=== PATIENT | male | born 1965 | race Caucasian/White ===

== ENCOUNTER 2017-03-18 08:41 | Day surgery (SDC) | payer OTHER ==
[2017-03-15 15:21] LABS: Basophils # (auto) 0.1 uL; Basophils % (auto) 0.9 % (0.0-2.0); Eosinophils # (auto) 0.4 uL; Eosinophils % (auto) 5.3 % (0.0-7.0); Hematocrit 45.7 % (41.0-53.0); Hemoglobin 15.6 g/dL (13.5-17.5); Lymphocytes # (auto) 3.4 uL; Lymphocytes % (auto) 47.6 % (10.0-50.0); Mean Corpuscular Hemoglobin 32.7 pg (28.0-32.0); Mean Corpuscular Hgb Conc. 34.1 g/dL (32.0-36.0); Mean Corpuscular Volume 95.9 fL (80.0-100.0); Mean Platelet Volume 8.6 fL (7.4-10.4); Monocytes # (auto) 0.6 uL; Monocytes % (auto) 8.4 % (0.0-12.0); Neutrophils # (auto) 2.7 uL; Neutrophils % (auto) 37.8 % (37.0-80.0); Platelet Count (auto) 334 10^3/uL (140-450); Red Cell Distribution Width 13.5 % (11.6-16.0); White Blood Cell 7.2 10^3/uL (4.4-10.8)
[2017-03-15 15:39] LABS: INR 0.96 (0.9-1.15); Partial Thromboplastin Time 25.2 sec (22.64-33.71); Prothrombin Time 10.5 sec (9.37-12.3)
[~2017-03-18] VITALS: Ht 190.5 cm; Wt 105.2 kg
[~2017-03-18 08:41] MED LIST: ASPI81TA27 PO; ERGO2000 PO; LISI-275 PO; METO25TA5 PO; OMEP20CA74 PO; SIMV-8 PO; TOPI100T29 PO
[2017-03-18] MEDS ORDERED: LIDOCAINE VISCOUS 2% 15ML UD ONE (08:55)
[2017-03-18] MEDS ORDERED: diphenhdrAMINE HCL 50 MG/1 ML VL ONE (08:55)
[2017-03-18] MEDS ORDERED: SODIUM CHLORIDE LOCK 10 ML ONE (08:55)
[2017-03-18] MEDS ORDERED: MIDAZOLAM HCL 5 MG/ML-1ML VIAL ONE (09:06)
[2017-03-18] MEDS ORDERED: fentaNYL CITRATE 100 MCG/2 ML VL ONE (09:07)
[2017-03-18] MEDS: fentaNYL CITRATE 100 MCG/2 ML VL ONE ×2 (10:33→10:36)
[2017-03-18] MEDS: MIDAZOLAM HCL 5 MG/ML-1ML VIAL ONE ×3 (10:33→10:45)
[2017-03-18 11:30] VITALS: BP 119/85
== END 2017-03-18 11:30 | disposition home or self-care (01) ==
LOC: GI 08:41
PROVIDERS: ATTEND Internal Medicine Gastroenterology
DX: D12.4 Benign neoplasm of descending colon (principal); K63.5 Polyp of colon; K57.30 Diverticulosis of large intestine without perforation or abscess without bleeding; K64.8 Other hemorrhoids; Z86.010 Personal history of colon polyps; K22.70 Barrett's esophagus without dysplasia; F17.200 Nicotine dependence, unspecified, uncomplicated
CPT/HCPCS: 36415; 43239; 45380; 85025; 85610; 85730; 88305; 88313; J1200; J2250; J3010; J7030

== ENCOUNTER → 2018-05-19 | Outpatient (CLI) | payer OTHER ==
[~2018-05-19] MED LIST changes: -ERGO2000 PO
[2018-05-19 08:20] LABS: Basophils # (auto) 0.1 uL; Basophils % (auto) 1.2 % (0.0-2.0); Eosinophils # (auto) 0.4 uL; Eosinophils % (auto) 5.3 % (0.0-7.0); Hematocrit 47.7 % (41.0-53.0); Hemoglobin 16.2 g/dL (13.5-17.5); Lymphocytes # (auto) 3.4 uL; Lymphocytes % (auto) 43.1 % (10.0-50.0); Mean Corpuscular Hgb Conc. 33.9 g/dL (32.0-36.0); Mean Corpuscular Volume 97.6 fL (80.0-100.0); Monocytes # (auto) 0.7 uL; Monocytes % (auto) 8.7 % (0.0-12.0); Neutrophils # (auto) 3.3 uL; Neutrophils % (auto) 41.7 % (37.0-80.0); Nucleated Red Blood Cells % 0.1 %; Platelet Count (auto) 281 10^3/uL (140-450); Red Blood Cells 4.89 10^6/uL (4.5-5.90); Red Cell Distribution Width 13.6 % (11.8-14.3); White Blood Cell 7.9 10^3/uL (4.4-10.8)
[2018-05-19 08:53] LABS: Albumin 3.9 g/dL (3.4-5.0); BUN/Creatinine Ratio 16.1; Bilirubin, Total 0.7 mg/dL (0.2-1.0); Calcium 8.2 mg/dL (8.5-10.1); Potassium 3.5 mmol/L (3.5-5.1); Total Protein 7.3 g/dL (6.4-8.2)
[2018-05-19 09:34] LABS: Urine Bacteria FEW /hpf (None Seen); Urine Blood Negative /uL (Negative); Urine WBC 1 /hpf (0 - 3)
== END | disposition home or self-care (01) ==
LOC: LAB 07:14
PROVIDERS: ATTEND Family Medicine
DX: I10 Essential (primary) hypertension (principal); E55.9 Vitamin D deficiency, unspecified; E78.5 Hyperlipidemia, unspecified; Z71.6 Tobacco abuse counseling; Z83.3 Family history of diabetes mellitus; Z87.891 Personal history of nicotine dependence; Z79.82 Long term (current) use of aspirin
CPT/HCPCS: 36415; 80053; 80061; 81001; 83036; 85025

== ENCOUNTER → 2018-07-25 | Outpatient (CLI) | payer OTHER ==
[2018-07-25 10:03] LABS: Cholesterol 136 mg/dL (< 200); HDL Cholesterol 36 mg/dL (40-59); LDL Cholesterol 75 mg/dL (< 100); Triglycerides 224 mg/dL (< 150)
== END | disposition home or self-care (01) ==
LOC: LAB 08:51
PROVIDERS: ATTEND Family Medicine
DX: Z12.5 Encounter for screening for malignant neoplasm of prostate (principal); E78.5 Hyperlipidemia, unspecified; Z87.891 Personal history of nicotine dependence
CPT/HCPCS: 36415; 80061; 84153

== ENCOUNTER → 2019-03-17 | Outpatient (CLI) | payer OTHER ==
[2019-03-17 08:05] LABS: BUN/Creatinine Ratio 15.5; Calcium 8.8 mg/dL (8.5-10.1); Potassium 4.3 mmol/L (3.5-5.1)
== END | disposition home or self-care (01) ==
LOC: LAB 07:23
PROVIDERS: ATTEND Family Medicine
DX: Z01.818 Encounter for other preprocedural examination (principal); D11.9 Benign neoplasm of major salivary gland, unspecified
CPT/HCPCS: 36415; 80048

== ENCOUNTER → 2019-08-21 | Outpatient (CLI) | payer OTHER ==
[~2019-08-21] MED LIST changes: +ASPI-404 PO; -ASPI81TA27 PO
[2019-08-21 08:29] LABS: Basophils # (auto) 0.1 uL; Eosinophils # (auto) 0.3 uL; Lymphocytes # (auto) 2.6 uL; Monocytes # (auto) 0.5 uL; Neutrophils # (auto) 2.7 uL
[2019-08-21 08:33] LABS: Basophils % (auto) 1.5 % (0.0-2.0); Eosinophils % (auto) 5.5 % (0.0-7.0); Hematocrit 45.9 % (41.0-53.0); Lymphocytes % (auto) 41.7 % (10.0-50.0); Mean Corpuscular Hemoglobin 34.3 pg (28.0-32.0); Mean Corpuscular Hgb Conc. 34.9 g/dL (32.0-36.0); Mean Corpuscular Volume 98.2 fL (80.0-100.0); Neutrophils % (auto) 43.3 % (37.0-80.0); Nucleated Red Blood Cells % 0.2 %; Platelet Count (auto) 258 10^3/uL (140-450); Red Blood Cells 4.68 10^6/uL (4.5-5.90); White Blood Cell 6.3 10^3/uL (4.4-10.8)
[2019-08-21 08:39] LABS: Urine Bacteria NONE SEEN /hpf (None Seen); Urine Blood Negative /uL (Negative); Urine Specific Gravity 1.018 (1.001-1.035); Urine WBC 1 /hpf (0 - 3)
[2019-08-21 09:09] LABS: Albumin 3.8 g/dL (3.4-5.0); BUN/Creatinine Ratio 14.7; Bilirubin, Total 0.4 mg/dL (0.2-1.0); Calcium 8.6 mg/dL (8.5-10.1)
== END | disposition home or self-care (01) ==
LOC: LAB 07:16
PROVIDERS: ATTEND Family Medicine
DX: E78.5 Hyperlipidemia, unspecified (principal); K21.9 Gastro-esophageal reflux disease without esophagitis; I10 Essential (primary) hypertension; F17.200 Nicotine dependence, unspecified, uncomplicated; Z98.890 Other specified postprocedural states
CPT/HCPCS: 36415; 80053; 80061; 81001; 85025

== ENCOUNTER → 2020-10-13 | Outpatient (CLI) | payer OTHER ==
[~2020-10-13] MED LIST changes: -ASPI-404 PO; +ASPI-543 PO
[2020-10-13 07:34] LABS: Urine WBC None Seen /hpf (0 - 3)
[2020-10-13 07:54] LABS: Urine Bacteria NONE SEEN /hpf (None Seen); Urine Blood Negative /uL (Negative); Urine Specific Gravity 1.022 (1.001-1.035)
[2020-10-13 07:55] LABS: Albumin 3.9 g/dL (3.4-5.0); Potassium 4.2 mmol/L (3.5-5.1)
[2020-10-13 07:56] LABS: Basophils # (auto) 0 10 ^3/uL (0-0.2); Basophils % (auto) 0.4 % (0.0-2.0); Eosinophils # (auto) 0.4 10 ^3/uL (0-0.8); Hematocrit 46.4 % (41.0-53.0); Hemoglobin 16.3 g/dL (13.5-17.5); Lymphocytes # (auto) 2.7 10 ^3/uL (0.4-5.4); Lymphocytes % (auto) 43.3 % (10.0-50.0); Mean Corpuscular Hgb Conc. 35.2 g/dL (32.0-36.0); Mean Corpuscular Volume 96.7 fL (80.0-100.0); Monocytes # (auto) 0.5 10 ^3/uL (0-1.3); Monocytes % (auto) 8.5 % (0.0-12.0); Neutrophils # (auto) 2.6 10 ^3/uL (1.6-8.6); Neutrophils % (auto) 41.8 % (37.0-80.0); Nucleated Red Blood Cells % 0.1 %; Platelet Count (auto) 278 10^3/uL (140-450); Red Cell Distribution Width 13.2 % (11.8-14.3); White Blood Cell 6.3 10^3/uL (4.4-10.8)
[2020-10-13 08:02] LABS: BUN/Creatinine Ratio 13.3; Bilirubin, Total 0.4 mg/dL (0.2-1.0); Total Protein 7.9 g/dL (6.4-8.2)
== END | disposition home or self-care (01) ==
LOC: LAB 07:11
PROVIDERS: ATTEND Family Medicine
DX: Z12.5 Encounter for screening for malignant neoplasm of prostate (principal); I10 Essential (primary) hypertension; K21.9 Gastro-esophageal reflux disease without esophagitis; E78.5 Hyperlipidemia, unspecified; D11.9 Benign neoplasm of major salivary gland, unspecified; Z86.69 Personal history of other diseases of the nervous system and sense organs; Z72.0 Tobacco use
CPT/HCPCS: 36415; 80053; 80061; 81001; 84153; 85025

== ENCOUNTER 2022-06-22 10:45 | Day surgery (SDC) | payer OTHER ==
[2022-06-20 09:48] LABS: Basophils # (auto) 0.1 10 ^3/uL (0-0.2); Basophils % (auto) 0.9 % (0.0-2.0); Eosinophils # (auto) 0.3 10 ^3/uL (0-0.8); Eosinophils % (auto) 4.2 % (0.0-7.0); Hematocrit 46.7 % (41.0-53.0); Hemoglobin 15.7 g/dL (13.5-17.5); Lymphocytes # (auto) 2.6 10 ^3/uL (0.4-5.4); Lymphocytes % (auto) 38.8 % (10.0-50.0); Mean Corpuscular Hemoglobin 32.5 pg (28.0-32.0); Mean Corpuscular Hgb Conc. 33.7 g/dL (32.0-36.0); Mean Corpuscular Volume 96.5 fL (80.0-100.0); Monocytes # (auto) 0.5 10 ^3/uL (0-1.3); Neutrophils # (auto) 3.2 10 ^3/uL (1.6-8.6); Neutrophils % (auto) 48.1 % (37.0-80.0); Nucleated Red Blood Cells % 0.1 %; Red Blood Cells 4.84 10^6/uL (4.5-5.90); Red Cell Distribution Width 12.8 % (11.8-14.3); White Blood Cell 6.6 10^3/uL (4.4-10.8)
[2022-06-20 10:05] LABS: INR 1.01 (0.9-1.15); Partial Thromboplastin Time 25.6 sec (24.6-33.4)
[2022-06-20 10:33] LABS: Albumin 3.8 g/dL (3.4-5.0); Calcium 8.7 mg/dL (8.5-10.1); Potassium 3.9 mmol/L (3.5-5.1)
[2022-06-20 10:36] LABS: BUN/Creatinine Ratio 13.3; Bilirubin, Total 0.4 mg/dL (0.2-1.0)
[~2022-06-22] VITALS: Ht 190.5 cm; Wt 104.3 kg
[~2022-06-22 10:45] MED LIST changes: +BUPRTAB3 PO; +MIDAZOLAM HCL 5 MG/ML-1ML VIAL ONE; +TRAM50TA2 PO; +diphenhdrAMINE HCL 50 MG/1 ML VL ONE; +fentaNYL CITRATE 100 MCG/2 ML VL ONE
[2022-06-22] MEDS ORDERED: SODIUM CHLORIDE LOCK 10 ML ONE (11:38)
[2022-06-22] MEDS: MIDAZOLAM HCL 5 MG/ML-1ML VIAL ONE ×4 (12:22→12:39)
[2022-06-22] MEDS: fentaNYL CITRATE 100 MCG/2 ML VL ONE ×3 (12:22→12:29)
[2022-06-22] MEDS: diphenhdrAMINE HCL 50 MG/1 ML VL ONE ×2 (12:22→12:26)
[2022-06-22 13:20] VITALS: BP 115/85
== END 2022-06-22 13:36 | disposition home or self-care (01) ==
LOC: GI 10:45
PROVIDERS: ATTEND Internal Medicine Gastroenterology
DX: Z12.11 Encounter for screening for malignant neoplasm of colon (principal); D12.4 Benign neoplasm of descending colon; D12.3 Benign neoplasm of transverse colon; D12.7 Benign neoplasm of rectosigmoid junction; K64.8 Other hemorrhoids; I10 Essential (primary) hypertension; F32.A Depression, unspecified; E78.5 Hyperlipidemia, unspecified; G43.909 Migraine, unspecified, not intractable, without status migrainosus; K21.9 Gastro-esophageal reflux disease without esophagitis; Z98.890 Other specified postprocedural states; Z79.899 Other long term (current) drug therapy; Z87.891 Personal history of nicotine dependence; Z20.822 Contact with and (suspected) exposure to COVID-19
CPT/HCPCS: 36415; 45381; 45385; 80053; 85025; 85610; 85730; 88305; J1200; J2250; J3010; J7030; U0003; G0500

== ENCOUNTER → 2022-10-31 | Day surgery (SDC) | payer OTHER ==
[2022-10-30 08:57] LABS: Basophils # (auto) 0.1 10 ^3/uL (0-0.2); Eosinophils # (auto) 0.2 10 ^3/uL (0-0.8); Eosinophils % (auto) 2.8 % (0.0-7.0); Hematocrit 47.5 % (41.0-53.0); Hemoglobin 16.1 g/dL (13.5-17.5); Lymphocytes # (auto) 2.6 10 ^3/uL (0.4-5.4); Lymphocytes % (auto) 37.5 % (10.0-50.0); Mean Corpuscular Hemoglobin 32.5 pg (28.0-32.0); Mean Corpuscular Hgb Conc. 33.9 g/dL (32.0-36.0); Mean Corpuscular Volume 95.8 fL (80.0-100.0); Monocytes # (auto) 0.5 10 ^3/uL (0-1.3); Monocytes % (auto) 7.1 % (0.0-12.0); Neutrophils # (auto) 3.6 10 ^3/uL (1.6-8.6); Neutrophils % (auto) 51.6 % (37.0-80.0); Nucleated Red Blood Cells % 0.1 %; Red Blood Cells 4.96 10^6/uL (4.5-5.90); Red Cell Distribution Width 13.4 % (11.8-14.3); White Blood Cell 6.9 10^3/uL (4.4-10.8)
[2022-10-30 09:10] LABS: INR 1.02 (0.9-1.15); Partial Thromboplastin Time 24.5 sec (24.6-33.4)
[2022-10-30 10:43] LABS: Albumin 3.9 g/dL (3.4-5.0); BUN/Creatinine Ratio 11.8; Potassium 3.6 mmol/L (3.5-5.1)
[2022-10-30 10:46] LABS: Bilirubin, Total 0.5 mg/dL (0.2-1.0); Total Protein 7.4 g/dL (6.4-8.2)
[~2022-10-31] VITALS: Ht 190.5 cm; Wt 106.6 kg
[~2022-10-31] MED LIST changes: +LIDOCAINE VISCOUS 2% 15ML UD ONE; +MIDAZOLAM HCL 2MG/2ML 2ml VIAL (1mg/ml) ONE; -MIDAZOLAM HCL 5 MG/ML-1ML VIAL ONE; +PROPOFOL 10 MG/ML 20 ML IV ONE; +SODIUM CHLORIDE LOCK 0 ML ONE
[2022-10-31 15:32] VITALS: BP 106/75
== END | disposition home or self-care (01) ==
LOC: GI 12:27
PROVIDERS: ATTEND Internal Medicine Gastroenterology
DX: K21.00 Gastro-esophageal reflux disease with esophagitis, without bleeding (principal); K44.9 Diaphragmatic hernia without obstruction or gangrene; K29.90 Gastroduodenitis, unspecified, without bleeding; K29.50 Unspecified chronic gastritis without bleeding; I10 Essential (primary) hypertension; Z20.822 Contact with and (suspected) exposure to COVID-19; Z79.899 Other long term (current) drug therapy; G43.909 Migraine, unspecified, not intractable, without status migrainosus
CPT/HCPCS: 36415; 43239; 80053; 85025; 85610; 85730; 88305; 88312; 88342; J1200; J2250; J2704; J3010; J7030; U0003

== ENCOUNTER → 2022-12-28 | Outpatient (CLI) | payer OTHER ==
[~2022-12-28] MED LIST changes: -LIDOCAINE VISCOUS 2% 15ML UD ONE; -MIDAZOLAM HCL 2MG/2ML 2ml VIAL (1mg/ml) ONE; -PROPOFOL 10 MG/ML 20 ML IV ONE; -SODIUM CHLORIDE LOCK 0 ML ONE; -diphenhdrAMINE HCL 50 MG/1 ML VL ONE; -fentaNYL CITRATE 100 MCG/2 ML VL ONE
[2022-12-28 08:49] LABS: Basophils # (auto) 0.1 10 ^3/uL (0-0.2); Basophils % (auto) 1.3 % (0.0-2.0); Eosinophils # (auto) 0.3 10 ^3/uL (0-0.8); Eosinophils % (auto) 4.4 % (0.0-7.0); Hematocrit 47.9 % (41.0-53.0); Hemoglobin 16.4 g/dL (13.5-17.5); Lymphocytes # (auto) 2.6 10 ^3/uL (0.4-5.4); Lymphocytes % (auto) 39.7 % (10.0-50.0); Mean Corpuscular Hemoglobin 32.6 pg (28.0-32.0); Mean Corpuscular Hgb Conc. 34.2 g/dL (32.0-36.0); Mean Corpuscular Volume 95.1 fL (80.0-100.0); Monocytes # (auto) 0.7 10 ^3/uL (0-1.3); Monocytes % (auto) 11.3 % (0.0-12.0); Neutrophils # (auto) 2.8 10 ^3/uL (1.6-8.6); Neutrophils % (auto) 43.3 % (37.0-80.0); Nucleated Red Blood Cells % 0.3 %; Red Blood Cells 5.04 10^6/uL (4.5-5.90); Red Cell Distribution Width 13.4 % (11.8-14.3); White Blood Cell 6.5 10^3/uL (4.4-10.8)
[2022-12-28 09:03] LABS: Albumin 3.6 g/dL (3.4-5.0); BUN/Creatinine Ratio 15.6; Calcium 8.7 mg/dL (8.5-10.1); Potassium 3.8 mmol/L (3.5-5.1)
[2022-12-28 09:08] LABS: Bilirubin, Total 0.4 mg/dL (0.2-1.0); Total Protein 7.4 g/dL (6.4-8.2)
== END | disposition home or self-care (01) ==
LOC: LAB 08:24
PROVIDERS: ATTEND Student in an Organized Health Care Education/Training Program
DX: I10 Essential (primary) hypertension (principal); E78.2 Mixed hyperlipidemia; F41.9 Anxiety disorder, unspecified; K21.00 Gastro-esophageal reflux disease with esophagitis, without bleeding
CPT/HCPCS: 36415; 80053; 80061; 85025

== ENCOUNTER → 2023-03-15 | Outpatient (CLI) | payer OTHER ==
[~2023-03-15] MED LIST changes: -SIMV-8 PO; +SIMV20TA20 PO
== END | disposition home or self-care (01) ==
LOC: LAB 11:55
PROVIDERS: ATTEND Family Medicine
DX: L72.8 Other follicular cysts of the skin and subcutaneous tissue (principal)
CPT/HCPCS: 88302

== ENCOUNTER → 2023-08-28 | Outpatient (CLI) | payer OTHER ==
[2023-08-28 06:49] LABS: Basophils # (auto) 0.1 10 ^3/uL (0-0.2); Basophils % (auto) 1.4 % (0.0-2.0); Eosinophils # (auto) 0.2 10 ^3/uL (0-0.8); Eosinophils % (auto) 4.6 % (0.0-7.0); Hematocrit 45.1 % (41.0-53.0); Hemoglobin 15.4 g/dL (13.5-17.5); Lymphocytes # (auto) 2.3 10 ^3/uL (0.4-5.4); Lymphocytes % (auto) 50.3 % (10.0-50.0); Mean Corpuscular Hgb Conc. 34.2 g/dL (32.0-36.0); Mean Corpuscular Volume 96.3 fL (80.0-100.0); Monocytes # (auto) 0.4 10 ^3/uL (0-1.3); Monocytes % (auto) 8.8 % (0.0-12.0); Neutrophils # (auto) 1.6 10 ^3/uL (1.6-8.6); Neutrophils % (auto) 34.9 % (37.0-80.0); Nucleated Red Blood Cells % 0.2 %; Red Blood Cells 4.68 10^6/uL (4.5-5.90); Red Cell Distribution Width 13.5 % (11.8-14.3); White Blood Cell 4.7 10^3/uL (4.4-10.8)
[2023-08-28 08:15] LABS: Alanine Aminotransferase 48 U/L (7-40); Alkaline Phosphatase 88 U/L (46-116); Anion Gap 9 (5-15); Aspartate Aminotransferase 23 U/L (13-40); Blood Urea Nitrogen 9 mg/dL (9-23); Calcium 9.3 mg/dL (8.5-10.1); Carbon Dioxide 26 mmol/L (20-30); Chloride 108 mmol/L (98-107); Glucose 101 mg/dL (74-106); LDL Cholesterol 58 mg/dL (< 100); Sodium 143 mmol/L (136-145); Triglycerides 172 mg/dL (< 150)
[2023-08-28 08:16] LABS: Albumin 4.6 g/dL (3.2-4.8); Bilirubin, Total 0.5 mg/dL (0.2-1.0); Cholesterol 121 mg/dL (< 200); HDL Cholesterol 35 mg/dL (40-59); Total Protein 7.2 g/dL (5.7-8.2)
[2023-08-29 07:07] LABS: Immunoglobulin A 249 mg/dL (90-386)
== END | disposition home or self-care (01) ==
LOC: LAB 06:05
PROVIDERS: ATTEND Internal Medicine Gastroenterology
DX: K21.9 Gastro-esophageal reflux disease without esophagitis (principal); R19.4 Change in bowel habit; R19.7 Diarrhea, unspecified
CPT/HCPCS: 36415; 80053; 80061; 82784; 83036; 83516; 84443; 85025; 86255

== ENCOUNTER 2025-02-24 06:08 | Day surgery (SDC) | payer OTHER ==
[2025-02-23 11:23] LABS: Urine Bacteria None Seen /hpf (None Seen)
[2025-02-23 11:31] LABS: Basophils # (auto) 0.1 10 ^3/uL (0-0.2); Basophils % (auto) 1.1 % (0.0-2.0); Eosinophils # (auto) 0.2 10 ^3/uL (0-0.8); Eosinophils % (auto) 3.9 % (0.0-7.0); Hematocrit 47.5 % (41.0-53.0); Hemoglobin 16.5 g/dL (13.5-17.5); Lymphocytes # (auto) 2.8 10 ^3/uL (0.4-5.4); Lymphocytes % (auto) 43.2 % (10.0-50.0); Mean Corpuscular Hemoglobin 32.4 pg (28.0-32.0); Mean Corpuscular Hgb Conc. 34.7 g/dL (32.0-36.0); Mean Corpuscular Volume 93.4 fL (80.0-100.0); Monocytes # (auto) 0.7 10 ^3/uL (0-1.3); Monocytes % (auto) 10.5 % (0.0-12.0); Neutrophils # (auto) 2.7 10 ^3/uL (1.6-8.6); Neutrophils % (auto) 41.3 % (37.0-80.0); Nucleated Red Blood Cells % 0.1 %; Platelet Count (auto) 268 10^3/uL (140-450); Red Blood Cells 5.09 10^6/uL (4.5-5.90); Red Cell Distribution Width 13.4 % (11.8-14.3); White Blood Cell 6.5 10^3/uL (4.4-10.8)
[2025-02-23 11:34] LABS: Urine Blood Negative /uL (Negative); Urine Clarity Clear (Clear); Urine Color Light-Yellow (Yellow); Urine Protein, UAD Negative (Negative); Urine Specific Gravity 1.008 (1.001-1.035); Urine Squamous Epithelial Cell None Seen /hpf (<5); Urine Urobilinogen Normal (Negative); Urine WBC < 1 /HPF (0-3)
[2025-02-23 11:49] LABS: INR 1.02 (0.9-1.15); Partial Thromboplastin Time 24.5 SEC (24.5-34.5); Prothrombin Time 10.8 sec (9.3-11.8)
[2025-02-23 11:56] LABS: Albumin 4.6 g/dL (3.2-4.8); Alkaline Phosphatase 81 U/L (46-116); Anion Gap 8 (5-15); Aspartate Aminotransferase 22 U/L (13-40); Bilirubin, Total 0.5 mg/dL (0.2-1.0); Blood Urea Nitrogen 12 mg/dL (9-23); Calcium 9.4 mg/dL (8.7-10.4); Carbon Dioxide 26 mmol/L (20-31); Glucose 78 mg/dL (74-106); Sodium 142 mmol/L (136-145); Total Protein 7.3 g/dL (5.7-8.2)
[2025-02-23 11:57] LABS: Alanine Aminotransferase 49 U/L (7-40); Chloride 108 mmol/L (98-107)
[~2025-02-24] VITALS: Ht 190.5 cm; Wt 106.6 kg
[~2025-02-24 06:08] MED LIST changes: +SERT25TA28 PO; -TRAM50TA2 PO
[2025-02-24] MEDS ORDERED: ceFAZolin 2 GM/D5W50ml 50 ML IV ONE (06:27)
[2025-02-24] MEDS ORDERED: HYDROmorphone HCL 2 MG/ML VL/or syr ONE (07:18)
[2025-02-24] MEDS ORDERED: fentaNYL CITRATE 100 MCG/2 ML VL ONE (07:18)
[2025-02-24] MEDS ORDERED: MIDAZOLAM HCL 2MG/2ML 2ml VIAL (1mg/ml) ONE (07:18)
[2025-02-24] MEDS ORDERED: LIDOCAINE 2% (LOCAL ANESTH.) PF 5ml SDV ONE (07:19)
[2025-02-24] MEDS ORDERED: ePHEDrine SULFATE 50 MG/ML AMP ONE (07:19)
[2025-02-24] MEDS ORDERED: ONDANSETRON HCL 4 MG/2 ML VIAL ONE (07:19)
[2025-02-24] MEDS ORDERED: PROPOFOL 10 MG/ML 20 ML IV ONE (07:19)
[2025-02-24] MEDS ORDERED: GLYCOPYRROLATE 0.2 MG/ML 1ML VIAL ONE (07:19)
[2025-02-24] MEDS ORDERED: DexAMETHasone SOD PHOS 10MG/1ML VIAL INJ ONE (07:19)
[2025-02-24] MEDS ORDERED: KETOROLAC TROMETH 30 MG/ML 1ML VIAL ONE (07:19)
[2025-02-24] MEDS: BUPIVACAINE HCL 0.25% P/F 10 ML VIAL ONE (07:48)
[2025-02-24] MEDS: LIDOCAINE W/ EPINEPHRINE 1% 20ML VIAL ONE (07:48)
[2025-02-24] MEDS ORDERED: ceFAZolin 1GM VL ONE (08:09)
[2025-02-24 08:26] VITALS: PULSE 94; RESP 16; TEMP 97.9; O2SAT 95
[2025-02-24] MEDS ORDERED: HYDROmorphone HCL 2 MG/ML VL/or syr IV PRN (08:30)
[2025-02-24] MEDS ORDERED: ONDANSETRON HCL 4 MG/2 ML VIAL IV ONE (08:30)
[2025-02-24 09:08] VITALS: BP 129/81; PULSE 65; RESP 12; O2SAT 96
--- NOTE | 2025-02-24 09:15 | DVHOP ---
DATE OF SURGERY: 02/24/2025 PREOPERATIVE DIAGNOSIS: Left inguinal hernia. POSTOPERATIVE DIAGNOSIS: Left inguinal hernia. SURGEON: Macho Lala MD HOME SECURITY ALARM INSTALLER: monitor technician. ANESTHESIA: General, Dr. Tello PROCEDURE: Repair of left inguinal hernia (direct). DESCRIPTION OF PROCEDURE: Under general anesthesia with the patient's skin prepped and draped and infiltrated with 0.25% Marcaine and 0.5% Xylocaine, the patient's incision was made over a visible palpable bulge in the left groin. The incision was deepened with electrocautery. The cord structures were encircled with a Yong drain and retracted laterally. There was a very large direct herniation which was mobilized and reduced, held back with a baby Winnie retractor and a 4 x 4. At this point, the structures of the hernia floor were approximated using nonabsorbable sutures through conjoint tendon and Poupart's ligament. A small Marlex plug was placed into the internal ring and held back with several interrupted nonabsorbable sutures. The testicle was then replaced into its normal anatomical position. The wound was irrigated. Hemostasis was assured and approximation accomplished using Monocryl sutures, Dermabond glue, and Steri-Strips. The patient remained stable throughout the procedure. Left the operating room following an accurate needle and sponge count. The patient's family was not in the waiting room and did not answer the phone number given. MD GRANT Henriquez/PATT TID: [id number] RECEIPT: [id number]
== END 2025-02-24 09:22 | disposition home or self-care (01) ==
LOC: SUR 06:08
PROVIDERS: ATTEND Surgery
DX: K40.90 Unilateral inguinal hernia, without obstruction or gangrene, not specified as recurrent (principal); I10 Essential (primary) hypertension; E78.00 Pure hypercholesterolemia, unspecified; M51.369 Other intervertebral disc degeneration, lumbar region without mention of lumbar back pain or lower extremity pain
CPT/HCPCS: 36415; 49505; 80053; 81001; 85025; 85610; 85730; 86850; 86900; 86901; C1781; J0690; J1100; J1171; J1885; J2003; J2250; J2405; J2704; J3010; J3490

== ENCOUNTER 2025-02-27 17:28 | Emergency (ER) | payer OTHER ==
[~2025-02-27] VITALS: Ht 190.5 cm; Wt 112.0 kg
[2025-02-27 18:19] VITALS: BP 135/93; PULSE 74; RESP 18; TEMP 98.6; O2SAT 96
--- NOTE | 2025-02-27 18:21 | ED.PDOC ---
History of Present Illness(SKN HPI Comments 52-YEAR-OLD MALE PRESENTS TO THE ED STATES HE HAD INJUINAL HERNIAL AT [facility] ON 02/24/25. DENIES PAIN TO INCISION AREA, NO DRAINAGE, REDNESS OR DEHISCENCE NOTED. PTS MAIN CONCERN IS HE DID NOT RECIEVE ABX UPON DC FROM HOSPITAL Chief Complaint: Wound Check Time Seen by MD: 17:59 Primary Care Provider: Mary GUZMAN History of Present Illness: Nurses Notes, Medications, Allergies Allergies: Coded Allergies: NO KNOWN ALLERGIES (Unverified , 06/03/17) Home Meds Active Scripts Clotrimazole W/ Betamethasone (Clotrimazole/Betamethason 1-0.05 %) 1 Cre Cre, 1 APPLIC EX BID for 5 Days, #15 GRAMS Prov:FERNY EMANUEL [facility] 02/27/25 Amoxicillin & Pot Clavulanate (AUGMENTIN TABLET) 875 Mg Tb, 875 MG PO BID for 10 Days, #20 TAB Prov:FERNY EMANUEL [facility] 02/27/25 Reported Medications Sertraline Hcl (Sertraline Hcl) 25 Mg Tab, 25 MG PO HS, TAB 02/23/25 Bupropion HCl (Wellbutrin Xl) 300 Mg Tab, 300 MG PO DAILY, TAB 06/21/22 Topiramate (Topamax) 100 Mg Tab, 1 TAB PO BID, #60 TAB 1 Refill Take 100 mg qam and take 50 mg qs. 03/15/17 Simvastatin (Simvastatin) 20 Mg Tab, 20 MG PO HS for 30 Days 03/15/17 Omeprazole (PRILOSEC) 20 Mg Cap, 20 MG PO HS for 30 Days, MG 03/15/17 Metoprolol Tartrate (Metoprolol Tartrate) 25 Mg Tab, 25 MG PO BID for 30 Days, MG 03/15/17 Lisinopril (Lisinopril) 5 Mg Tab, 5 MG PO HS for 30 Days, MG 03/15/17 Aspirin (Aspir-Low) 81 Mg Tab, 81 MG PO DAILY for 30 Days, MG 03/15/17 Information Source: Patient Mode of Arrival: Ambulatory Past Medical History PAST MEDICAL HISTORY: GERD, HTN, PUD Surgical History: Denies all surgeries Family History Family History: No family hx of Cancer, No family hx of Liver sanjeev, No family hx of Stroke Social History Smoker: Non-Smoker Alcohol: Denies ETOH Use Drugs: Denies Drug Use Lives In: Home Constitutional: denies: chills, diaphoresis, fatigue, fever, malaise, sweats, weakness, others EENTM: denies: blurred vision, double vision, ear bleeding, ear discharge, ear drainage, ear pain, ear ringing, eye pain, eye redness, hearing loss, mouth pain, mouth swelling, nasal discharge, nose bleeding, nose congestion, nose pain, photophobia, tearing, throat pain, throat swelling, voice changes, others Respiratory: denies: cough, hemoptysis, orthopnea, SOB at rest, shortness of breath, SOB with excertion, stridor, wheezing, others Cardiovascular: denies: chest pain, dizzy spells, diaphoresis, Dyspnea on exert ion, edema, irregular heart beat, left arm pain, lightheadedness, palpitations, PND, syncope, others Gastrointestinal: denies: abdomen distended, abdominal pain, blood streaked bowels, constipated, diarrhea, dysphagia, difficulty swallowing, hematemesis, melena, nausea, poor appetite, poor fluid intake, rectal bleeding, rectal pain, vomiting, others Genitourinary: denies: burning, dysuria, flank pain, frequency, hematuria, incontinence, penile discharge, penile sore, pain, testicle pain, testicle swelling, urgency, others Neurological: denies: dizziness, fainting, headache, left sided numbness, left sided weakness, numbness, paresthesia, pre-existing deficit, right sided numbness, right sided weakness, seizure, speech problems, tingling, tremors, weakness, others Musculoskeletal: denies: back pain, gout, joint pain, joint swelling, muscle pain, muscle stiffness, neck pain, others Integumetry: reports: bruises; denies: change in color, change in hair/nails, dryness, laceration, lesions, lumps, rash, wounds, others Allergic/Immunocompromised: denies: Difficulty Healing, Frequent Infections, Hives, Itching, others Hematologic/Lymphatic: denies: anemia, blood clots, easy bleeding, easy bruising, swollen glands, others Endocrine: denies: excessive hunger, excessive sweating, excessive thirst, excessive urination, flushing, intolerance to cold, intolerance to heat, unexplained weight gain, unexplained weight loss, others Psychiatric: denies: anxiety, bipolar disorder, depression, hopeless, panic disorder, schizophrenia, sleepless, suicidal, others Physical Exam General Appearance: No Apparent Distress, Normal HEENT: Pharynx Normal Neck: Full Range of Motion, Non-Tender Respiratory: Lungs Clear, No Respiratory Distress, Normal Breath Sounds Cardiovascular: No Murmur, Normal Peripheral Pulses, Regular Rate/Rhythm Breast Exam: Deferred Gastrointestinal: No Organomegaly, Non Tender, No Pulsatile Mass, Normal Bowel Sounds, Soft Genitalia: Deferred Pelvic: Deferred Rectal: Deferred Extremities: Normal capillary refill, Normal inspection, Normal range of motion, Non-tender, No pedal edema Musculoskeletal : Apperance: Normal Neurologic: Alert, licensing representative II-XII nml as Tested, No Motor Deficits, Normal Affect, Normal Mood, No Sensory Deficits Cerebellar Function: Normal Reflexes: Normal Skin: Dry, Normal Color, Rash (ERYTHEMIC RASH NOTED LEFT GROIN NOTED EXCORIATIONS STREAKING OR OPEN LESIONS), Warm, Wounds (SURGICAL INCISION NOTED LEFT INGUINAL AREA TRACE ERYTHEMA RUTH INTACT NO NOTED DRAINAGE. MODERATE SUPRAPUBIC AREA) Lymphatic: No Adenopathy Was a procedure done? Was a procedure done?: No Differential Diagnosis (INTG) Differential Diagnosis: N/A Differential Diagnosis: Abscess, Cellulitis X-Ray, Labs, Meds, VS Vital Signs Date Time Temp Pulse Resp B/P (MAP) Pulse Ox O2 Delivery O2 Flow Rate FiO2 02/27/25 18:19 74 18 96 Room Air 02/27/25 18:19 98.6 74 18 135/93 (107) 96 98.6 02/27/25 17:46 98.6 74 18 135/93 (107) 96 98.6 Current Medications Medications (Trade) Dose Ordered Sig/Shelia Route Start Time Stop Time Status Last Admin Ceftriaxone Sodium (Rocephin) 1,000 mg ONCE ONCE IM 02/27/25 18:30 02/27/25 18:31 DC 02/27/25 18:39 X-Ray, Labs, Meds, VS Comment PATIENT GIVEN ROCEPHIN 1 G IM. SCRIPT AUGMENTIN START TRIAL OF PROPHYLACTICALLY STATUS POST SURGERY. ADVISED TO TAKE MEDICATIONS PRESCRIBED SIDE EFFECTS DISCUSSED. ADVISED TO KEEP HIS APPOINTMENT FOLLOW UP WITH THE SURGEON. ER RETURN PRECAUTIONS GIVEN PATIENT INDICATES UNDERSTANDING AGREES WITH DISCHARGE PLAN OF CARE. Time of 1ST Reevaluation: 18:20 Reevaluation 1ST: Unchanged Patient Education/Counseling: Diagnosis, Treatment, Prognosis, Need For Follow Up Family Education/Counseling: No Family Present Departure 1 Departure Time of Disposition: 18:29 Impression: Primary Impression: Presence of surgical incision Disposition: HOME / SELF CARE / HOMELESS Condition: Stable e-Prescriptions Clotrimazole W/ Betamethasone (Clotrimazole/Betamethason 1-0.05 %) 1 Cre Cre 1 APPLIC EX BID for 5 Days, #15 GRAMS Prov: FERNY EMANUEL 02/27/25 Amoxicillin & Pot Clavulanate (AUGMENTIN TABLET) 875 Mg Tb 875 MG PO BID for 10 Days, #20 TAB Prov: FERNY EMANUEL 02/27/25 Discharged With: Self Critical Care Note Critical Care Time?: No Stability Stability form required: FERNY Draper February 27, 2025 18:21
[2025-02-27] MEDS ORDERED: AUG875T PO (18:31)
[2025-02-27] MEDS ORDERED: CLOTCRE3 EX (18:39)
[2025-02-27] MEDS: cefTRIAXone SOD 1,000 MG VL IM ONE (18:39)
== END 2025-02-27 18:40 | disposition home or self-care (01) ==
LOC: ER 17:28
DX: K40.90 Unilateral inguinal hernia, without obstruction or gangrene, not specified as recurrent (principal); I10 Essential (primary) hypertension; Z97.8 Presence of other specified devices; Z87.11 Personal history of peptic ulcer disease; Z79.899 Other long term (current) drug therapy
CPT/HCPCS: 96372; 99283; J0696